=== PATIENT | male | born 1940 | race Caucasian/White ===

== ENCOUNTER 2017-07-25 08:49 | Emergency (ER) | payer MEDICARE, OTHER, SELFPAY | END 2017-07-25 11:04 | disposition home or self-care (01) | PROVIDERS: Emergency Provider Emergency Medicine; PCP Internal Medicine; Visit Provider Emergency Medicine | DX: R10.31 Right lower quadrant pain (principal) | CPT/HCPCS: 76705; 80053; 85025; 99058; 99284 ==

== ENCOUNTER → 2017-09-11 10:03 | Outpatient (CLI) | payer MEDICARE, OTHER, SELFPAY ==
[2017-08-15 00:01] VITALS: BMI 27.7
--- NOTE | 2017-09-11 | DI.CT.S_ITS ---
PROCEDURE: CT ABDOMEN PELVIS W CON INDICATIONS: RIGHT LOWER QUADRANT PAIN TECHNIQUE: After the administration of oral and intravenous contrast, 5 mm thick sections acquired from the diaphragms to the symphysis. 5 mm thick coronal and sagittal reformats were performed. For radiation dose reduction, the following was used: automated exposure control, adjustment of mA and/or kV according to patient size. COMPARISON: [facility], CT, CHEST ABDOMEN WITH CONTRAST, 01/15/2009, 9:30. [facility], CT, ABDOMEN/PELVIS WITH CONTRAST, 08/02/2017, 12:09. FINDINGS: Image quality: Excellent. ABDOMEN: Lung bases: Lung bases are clear. Heart size is normal. A small to moderate-sized hiatal hernia is again seen behind the heart. Solid organs: Liver is normal in size and enhancement. Gallbladder appears normal. Biliary system is non-dilated. Pancreas enhances normally, and a water density ovoid sharply demarcated structure at the anterior superior border of the pancreatic tail now measures up to 2.0 cm AP and 2.5 cm transverse, versus 1.5 x 1.7 cm measured in the same area in [address] scan. Spleen is normal in size and enhancement. No adrenal nodules. Kidneys are normal in size and enhancement, without hydronephrosis. Exophytic anterior left simple appearing water density 4.5 x 5.7 cm renal cortical cyst. Peritoneum and bowel: Stomach, small bowel, and colon loops are normal in caliber and wall thickness. No free fluid or air. Moderate colonic constipation, right greater than left. Nodes and vessels: No retroperitoneal or mesenteric adenopathy. Aorta and inferior vena cava are normal in caliber. Miscellaneous: No ventral hernias. PELVIS: Genitourinary: Bladder wall thickness is normal. Miscellaneous: No inguinal hernias or adenopathy. Moderate colonic constipation, right greater than left. No acute diverticulitis and there is only mild diverticulosis involving the sigmoid colon. Bones: No suspicious bony lesions. No vertebral body compression fractures. IMPRESSION: 1. Bilateral colonic obstipation, right greater than left, and this represents a significant potential etiology for the reported right lower quadrant pain. A normal or abnormal appendix could not be located within the pelvis, but no secondary CT evidence of acute appendicitis is seen. 2. Anterior superior pancreatic tail cyst is present, measuring currently 2.0 x 2.5 cm in maximal AP and transverse dimensions and in 2008 this had measured 1.5 x 1.7 cm. 3. Mild diverticulosis involving the sigmoid colon, no evidence of diverticulitis. Dictated by: Matteo Wells M.D. on 09/11/2017 at 11:40 Approved by: Matteo Wells M.D. on 09/11/2017 at 11:49
== END ==
PROVIDERS: PCP Internal Medicine; Visit Provider Internal Medicine
DX: R10.31 Right lower quadrant pain (principal); K59.00 Constipation, unspecified; K86.2 Cyst of pancreas; K57.30 Diverticulosis of large intestine without perforation or abscess without bleeding
CPT/HCPCS: 74177; Q9967

== ENCOUNTER 2017-09-19 11:44 | Observation (INO) | payer MEDICARE, OTHER, SELFPAY ==
[2017-08-15 00:01] VITALS: BMI 27.7
--- NOTE | 2017-09-19 | DI.CT.S_ITS ---
PROCEDURE: CT HEAD/BRAIN WO CON INDICATIONS: FALL, POSSIBLE LOC TECHNIQUE: Noncontrast 4.5 mm thick angled axial sections acquired from the foramen magnum to the vertex, with coronal and sagittal reformats. For radiation dose reduction, the following was used: automated exposure control, adjustment of mA and/or kV according to patient size. COMPARISON: [facility], CT, HEAD WITHOUT CONTRAST, 05/15/2014, 15:09. [facility], CT, HEAD WITHOUT CONTRAST, 06/18/2017, 15:38. [facility], CT, CT HEAD/BRAIN WO CON, 08/14/2017, 19:07. FINDINGS: Image quality: Excellent. CSF spaces: Basal cisterns are patent. No extra-axial fluid collections. The ventricles are symmetric in size and shape. Brain: No intracranial bleeds or masses. There is cerebral volume loss for age, with resultant ventricular and sulcal prominence. There are periventricular and deep white matter chronic small vessel ischemic changes. There is intracranial internal carotid artery and vertebral artery atherosclerosis. Skull and face: Calvarium and visualized facial bones appear intact, without suspicious lesions. Sinuses: Visualized sinuses and mastoids are clear. IMPRESSION: No acute intracranial disease process. Dictated by: Olivia Thomas MD, PhD on 09/19/2017 at 12:40 Approved by: Olivia Thomas MD, PhD on 09/19/2017 at 12:41
--- NOTE | 2017-09-19 11:58 | ED.FALL ---
HPI - Fall General Chief Complaint: Fall Stated Complaint: GLF Time Seen by Provider: 09/19/17 11:51 Source: EMS Mode of arrival: EMS Limitations: no limitations History of Present Illness HPI Narrative: Patient is a go 77-year-old male who unfortunately tripped over a curb of falling forward. He did need some help up he has a contusion under his right eye and a laceration on his face. He is not on blood thinner she did not lose consciousness. He has no neck pain. His he is complaining of right shoulder pain and some right chest pain as well. MD complaint: fall Related Data Home Medications Medication Instructions Recorded Confirmed ASPIRIN (#ASPIRIN) 81 mg PO QDAY #0 01/01/11 08/15/17 ascorbic acid (vitamin C) 500 mg PO QDAY #0 06/18/17 08/15/17 Previous Rx's Medication Instructions Recorded acetaminophen 0 mg PO Q4HP PRN #30 tab 06/21/17 tamsulosin 0.4 mg PO DAILY #30 cap 08/17/17 tramadol 50 mg PO Q6H PRN #20 tab 08/17/17 bacitracin zinc 1 applictn TOP TID #15 gram 08/18/17 valsartan 80 mg PO DAILY #30 tab 08/18/17 Allergies Allergy/AdvReac Type Severity Reaction Status Date / Time Sulfa (Sulfonamide Allergy Mild Verified 08/16/17 11:56 Antibiotics) [SULFA (SULFONAMIDE ANTIBIOTICS)] Review of Systems Review of Systems All systems reviewed & are unremarkable except as noted in HPI and below Constitutional Denies chills, Denies fever(s), Denies lethargy and Denies weakness Eyes Denies loss of vision ENT Ears, Nose, Mouth, and Throat: Reports system reviewed and no additional complaints, except as docu, Reports as per HPI, Denies vertigo and Denies dizziness Cardiovascular Denies dyspnea and Denies dyspnea on exertion Respiratory Reports as per HPI, Denies cough, Denies dyspnea, Denies dyspnea on exertion and Denies wheezing Gastrointestinal Gastrointestinal: Denies abdominal pain, Denies change in bowel habits, Denies diarrhea, Denies nausea and Denies vomiting Integumentary/Breasts Denies pruritus, Denies erythema, Denies rash and Denies wounds Neurologic Denies vertigo, Denies dizziness, Denies loss of vision, Denies weakness and Denies other (LOC) Allergic/Immunologic Denies wheezing Exam Initial Vital Signs Initial Vital Signs: Vital Signs Temperature 97.2 F L 09/19/17 11:59 Pulse Rate 88 09/19/17 11:59 Respiratory Rate 13 09/19/17 11:59 Blood Pressure 142/84 H 09/19/17 11:59 Pulse Oximetry 97 09/19/17 11:59 HENMT Head: normal to inspection and normocephalic Ears: hearing grossly normal bilaterally Nose: external nose normal Eyes Alignment and Position: alignment normal Periorbital: periorbital findings abnormal right other (All laceration vertical 2 cm) Cornea: corneas normal Pupils: PERRL EOM: EOM intact bilaterally Resp Effort & Inspection: normal respiratory effort, able to speak in complete sentences, no respiratory distress and no use of accessory muscles Auscultation: clear to auscultation bilaterally, no rales, no rhonchi and no wheezes Cardio Rate: regular rate Rhythm: regular rhythm Heart Sounds: no click, no gallops, no murmurs and no rubs Pulses: normal peripheral pulses Skin Trauma: laceration (right periorbital area) Neuro General: alert, awake and oriented x3 Cognition: normal cognition Speech: speech normal Gait: normal gait Motor: muscle tone normal throughout Extrem General: normal to inspection and full ROM Right upper extremity: normal to inspection, full ROM and shoulder/upper arm (tender) Left upper extremity: normal to inspection and full ROM Right lower extremity: normal to inspection, full ROM and hip/thigh (tender) Left lower extremity: normal to inspection and full ROM PFSH Medical History Hypertension (Acute) Obstructive sleep apnea (Acute) Chronic kidney disease, stage II (mild) (Acute) Mild cognitive impairment (Acute) Osteoarthritis (Acute) Pressure ulcer of unspecified buttock, stage 3 (Acute) Allergic rhinitis (Acute) Urinary retention (Acute) Social History household members: none Smoking Status: Never smoker alcohol intake: current Procedures Laceration Repair Laceration 1: Site: face Side (If applicable): right Size (cm): 2 Description: linear Depth: simple, single layer Local Anesthetic: lidocaine 1% Amount of anesthesia used (mL): 3 Pre-repair: wound explored and irrigated extensively Skin layer closed with: nylon Size (cm): 5-0 Number of sutures: 3 Technique: simple, interrupted Course Orders Ordered: ED Orders 09/19/17 11:59 XR hip w pel if done RT 2V Stat XR shoulder RT min 2V Stat 09/19/17 13:03 XR chest 1V Stat 09/19/17 15:08 Consult to Physical Therapy Evaluate & Treat Vital Signs - 8 hr 09/19/17 11:59 09/19/17 13:35 09/19/17 14:33 Temperature 97.2 F L Pulse Rate 88 80 84 Respiratory Rate 13 14 16 Blood Pressure 142/84 H Blood Pressure [Right Arm] 148/91 H 151/88 H Pulse Oximetry 97 95 96 MDM - Fall Imaging Data CT scan - head: My impression: PROCEDURE: CT HEAD/BRAIN WO CON INDICATIONS: FALL, POSSIBLE LOC TECHNIQUE: Noncontrast 4.5 mm thick angled axial sections acquired from the foramen magnum to the vertex, with coronal and sagittal reformats. For radiation dose reduction, the following was used: automated exposure control, adjustment of mA and/or kV according to patient size. COMPARISON: [facility], CT, HEAD WITHOUT CONTRAST, 05/15/2014, 15:09. [facility], CT, HEAD WITHOUT CONTRAST, 06/18/2017, 15:38. [facility], CT, CT HEAD/BRAIN WO CON, 08/14/2017, 19:07. FINDINGS: Image quality: Excellent. CSF spaces: Basal cisterns are patent. No extra-axial fluid collections. The ventricles are symmetric in size and shape. Brain: No intracranial bleeds or masses. There is cerebral volume loss for age, with resultant ventricular and sulcal prominence. There are periventricular and deep white matter chronic small vessel ischemic changes. There is intracranial internal carotid artery and vertebral artery atherosclerosis. Skull and face: Calvarium and visualized facial bones appear intact, without suspicious lesions. Sinuses: Visualized sinuses and mastoids are clear. IMPRESSION: No acute intracranial disease process. Dictated by: Olivia Thomas MD, PhD on 09/19/2017 at 12:40 Approved by: Olivia Thomas MD, PhD on 09/19/2017 at 12:41 right hip x ray: Radiologist's impression: PROCEDURE: XR HIP W PEL IF DONE RT 4V INDICATIONS: fall pain TECHNIQUE: AP pelvis and lateral view of the right hip acquired. COMPARISON: [facility], CR, PELVIS 1 OR 2 VIEWS, 06/20/2013, 15:06. [facility], CT, CT ABDOMEN PELVIS W CON, 09/11/2017, 11:06. FINDINGS: Bones: Patient is status post bilateral hip arthroplasties, with hardware components in expected positions. The hip joint appears congruent. The visualized bony structures appear intact. Soft tissues: Overlying postoperative changes are noted. No suspicious soft tissue densities. Heterotopic ossification adjacent to the right acetabulum is stable compared to prior CT scan. IMPRESSION: No fracture. No osseous lesion. If there are persistent symptoms or clinical suspicion for pathology, then repeat radiographs or advanced imaging (CT or bone scan) should be considered for further evaluation. Dictated by: Olivia Thomas MD, PhD on 09/19/2017 at 12:38 right shoulder: Radiologist's impression: PROCEDURE: XR HIP W PEL IF DONE RT 4V INDICATIONS: fall pain TECHNIQUE: AP pelvis and lateral view of the right hip acquired. COMPARISON: [facility], , PELVIS 1 OR 2 VIEWS, 06/20/2013, 15:06. [facility], CT, CT ABDOMEN PELVIS W CON, 09/11/2017, 11:06. FINDINGS: Bones: Patient is status post bilateral hip arthroplasties, with hardware components in expected positions. The hip joint appears congruent. The visualized bony structures appear intact. Soft tissues: Overlying postoperative changes are noted. No suspicious soft tissue densities. Heterotopic ossification adjacent to the right acetabulum is stable compared to prior CT scan. IMPRESSION: No fracture. No osseous lesion. If there are persistent symptoms or clinical suspicion for pathology, then repeat radiographs or advanced imaging (CT or bone scan) should be considered for further evaluation. Dictated by: Olivia Thomas MD, PhD on 09/19/2017 at 12:38 Chest x-ray: Radiologist's impression: PROCEDURE: XR CHEST 1V INDICATIONS: swelling pain right side of chest after fall TECHNIQUE: One view of the chest was acquired. COMPARISON: [facility], XR SHOULDER RT MIN 2V, 09/19/2017, 11:50. [facility], CHEST 1 VIEW, 06/18/2017, 15:19. FINDINGS: Surgical changes and devices: None. Lungs and pleura: No pleural effusions or pneumothorax. Elevation the right hemidiaphragm is stable. Linear opacities in the right lung base which could represent atelectasis or parenchymal scarring stable. Mediastinum: Mediastinal contours appear normal. Heart size is normal. Retrocardiac hiatal hernia stable. Bones and chest wall: No suspicious bony lesions. Overlying soft tissues appear unremarkable. IMPRESSION: No acute cardiopulmonary disease process. Dictated by: Olivia Thomas MD, PhD on 09/19/2017 at 14:03 [facility] Narrative Medical decision making narrative: The patient is ambulatory with a cane for minimal distance in the ED. Neighbors are here to pick him up. Apparently patient was wheeled out to the car and he would not of get from the wheelchair into the car. Of the neighbors would not take him home and less if he was able to get out of the wheelchair on his own accord. He was alone of the neighbors who are normally there they are leaving today and will not be back tomorrow to check on him he has no one else in town or around locally on the nearest is his sister in [place]. He is brought back to the emergency department. He is seen evaluated by physical therapy where it was determined he has maximal assistance he really will not get up out of the wheelchair on his own accord he does not have the strength. And once up a he is extremely unsteady on his feet. I have called and spoken with the sister in a [place]. She states they actually tried to get him into assisted living this week in fact just 2 or 3 days ago. There is a room available they have not yet made a down payment. The patient got very upset and did not want to live there. I have told her that he is unsafe off on his own that he needs more assistance than what his neighbors and home health care can give him. She agrees she understands. We are able to keep him in observation tonight to help keep him safe because there is no other way. She says he is supposed to go to [facility] she has left a message for Brayden the coordinator there. Unfortunately Robi is not in again in till 9:00 a.m. tomorrow. Hopefully arrangements can be made for tomorrow. Dr. Lenz has kindly and graciously accepted this patient for observation tonight. Discharge Plan Departure Patient Disposition: Admitted as Observation Clinical Impression: Face lacerations Interventions: ED Discharge Assessment Last Done: 09/19/17 14:42 Instructions: Contusion, DI for Laceration Repair Additional Instructions: 1. Have your suture removed in 5-7 days, you may go to walk-in clinic, return to the ER or call your primary care physician. 2. No soaking in water including dishes, bathtubs, Lakes, swimming pools etc 3. Signs of infection include, but not limited to, increased redness, increased swelling, increased pain, fever and purulent drainage, if the symptoms should arise, you may need an antibiotic and you should have a reevaluation either by your primary care provider or by the emergency department. 4. Put ice pack on the right eye 20 minutes at time Referrals: Rene Diop MD [Primary Care Provider] - Admit Date/Time: 09/19/17 17:42 Admit Provider: Ap Lenz
[2017-09-19 11:59] VITALS: BP 142/84; PULSE 88; RESP 13; TEMP 36.2; O2SAT 97
--- NOTE | 2017-09-19 11:59 | DI.RAD.S_ITS ---
PROCEDURE: XR SHOULDER RT MIN 2V INDICATIONS: fall pain deformity TECHNIQUE: 3 views of the shoulder were acquired. COMPARISON: [facility], CT, CT ANGIO CHEST PE PROTOCOL, 08/15/2017, 10:42. [facility], CR, XR SHOULDER LT MIN 2V, 08/14/2017, 18:59. FINDINGS: Bones: No fractures or dislocations. No suspicious bony lesions. Visualized ribs appear intact. Soft tissues: No suspicious soft tissue calcifications. IMPRESSION: No fracture. No acute osseous lesion. If there are persistent symptoms or clinical suspicion for pathology, then repeat radiographs or advanced imaging (CT, MRI or bone scan) should be considered for further evaluation. Dictated by: Olivia Thomas MD, PhD on 09/19/2017 at 12:33 Approved by: Olivia Thomas MD, PhD on 09/19/2017 at 12:35
--- NOTE | 2017-09-19 13:03 | DI.RAD.S_ITS ---
PROCEDURE: XR CHEST 1V INDICATIONS: swelling pain right side of chest after fall TECHNIQUE: One view of the chest was acquired. COMPARISON: [facility], CR, XR SHOULDER RT MIN 2V, 09/19/2017, 11:50. [facility], CR, CHEST 1 VIEW, 06/18/2017, 15:19. FINDINGS: Surgical changes and devices: None. Lungs and pleura: No pleural effusions or pneumothorax. Elevation the right hemidiaphragm is stable. Linear opacities in the right lung base which could represent atelectasis or parenchymal scarring stable. Mediastinum: Mediastinal contours appear normal. Heart size is normal. Retrocardiac hiatal hernia stable. Bones and chest wall: No suspicious bony lesions. Overlying soft tissues appear unremarkable. IMPRESSION: No acute cardiopulmonary disease process. Dictated by: Olivia Thomas MD, PhD on 09/19/2017 at 14:03 Approved by: Olivia Thomas MD, PhD on 09/19/2017 at 14:05
--- NOTE | 2017-09-19 13:24 | PC.NURSE ---
Pt has a puncture wound on right eyebrow.
[2017-09-19 13:35] VITALS: BP 148/91; PULSE 80; RESP 14; O2SAT 95
[2017-09-19 14:33] VITALS: BP 151/88; PULSE 84; RESP 16; O2SAT 96
--- NOTE | 2017-09-19 15:13 | PC.NURSE ---
pt ambulated in room well, pt leaving with neighbors and pt states it hurts to much to move, pt told we may have to admit him, he said no. spoke with dr. gifford and an order for PT. PT aware.
--- NOTE | 2017-09-19 16:19 | PT.IIE ---
Medical History (Last Updated 08/15/17 @ 16:24 by Rene Diop MD) Hypertension (Acute) Obstructive sleep apnea (Acute) Chronic kidney disease, stage II (mild) (Acute) Mild cognitive impairment (Acute) Osteoarthritis (Acute) Pressure ulcer of unspecified buttock, stage 3 (Acute) Allergic rhinitis (Acute) Urinary retention (Acute) Physical Therapy Inpatient Evaluation/Re-Eval M1 PT/OT-IP Prior Functional Status Start: 09/19/17 15:53 Freq: Status: Active Protocol: Document 09/19/17 15:53 AB (Rec: 09/19/17 16:19 AB [id number]) Medical Review Prior Functional Status Medical History Reviewed Yes Mobility and Gait Nurse stated that pt's friend told them that pt lives alone and has visiting nurse weekdays and only 2 neighbors assist him at home. Pt ambulates using a SPC. Social History Household Members none Living Arrangements Apartment/Condo Number of Floors (Floors) One Floor Home Environment Walk in Shower Tub/Shower Ramp Home Equipment Front Wheel Walker Straight Cane Employment Status Retired M2 PT-IP Current Condition Start: 09/19/17 15:53 Freq: Status: Active Protocol: Document 09/19/17 15:53 AB (Rec: 09/19/17 16:19 AB [id number]) Physical Therapy Current Condition Current Condition Evaluation Date 09/19/17 Treatment Diagnosis GLF; difficulty in mobility Onset Date 09/19/17 Precautions Other Precautions Falls M3 PT-IP Subjective Start: 09/19/17 15:53 Freq: Status: Active Protocol: Document 09/19/17 15:53 AB (Rec: 09/19/17 16:19 AB [id number]) Subjective Physical Therapy Visit Type Type Initial Evaluation Visit Start Time 15:30 Visit Stop Time 16:00 Total Visit Minutes 30 Number of TESTER WASTE DISPOSAL LEAKAGE Visits 0 Physical Therapy Visit Comments Patient Comments c/o R sided rib pain Therapy Pain Assessment Pain When Pain Assessed At Rest Pain Present Pain Present Pain Reported Location Right Ribs Scale Used pain scale not stated M4 PT-IP Mobility and Gait Start: 09/19/17 15:53 Freq: Status: Active Protocol: Document 09/19/17 15:53 AB (Rec: 09/19/17 16:19 AB [id number]) Bed Transfer Assessment Comments Bed Transfer Comments Pt completed sit to stand from w/c max A and max cues with ~ 4 attempts prior to being able to complete. Gait Assessment Gait Gait Assistance Required: Moderate Assistance Distance (Feet) (feet) 25 Able to Maintain Weight Bearing Status Yes During Gait Assistive Devices Assistive Device Gait Belt Straight Cane Orthotic/Prosthetic Devices or Brace: No Gait Deviations General Gait Pattern Antalgic Decreased Stride Length Decreased Feet Clearance Narrow Based Gait Factors Limiting Gait Function Factors Limiting Gait Function Decreased Activity Tolerance Decreased Strength Pain Poor Balance Poor Safety Awareness Comments Gait Comments pt presents with unsteady gait requiring mod A and increase unsteadiness with turning. informed pt that pt is safer with using a FWW at this time instead of a SPC. PT-Balance Assessment Sitting Balance and Reactions Static Sitting Balance Ability Good Dynamic Sitting Balance Ability Fair Standing Balance and Reactions Static Standing Balance Ability Fair Dynamic Standing Balance Ability Poor Device Used SPC M5 PT-IP Objective Assessments Start: 09/19/17 15:53 Freq: Status: Active Protocol: Document 09/19/17 15:53 AB (Rec: 09/19/17 16:19 AB [id number]) Orientation Orientation/Cognition Level of Alertness Alert Orientation Name Place Situation Safety Awareness Decreased Safety Awareness Memory Description Short Term Impaired Fpc Impaired Strength Lower Extremity Strength Assessment Bilaterally Impaired Hip 4-/5 Knee 4-/5 Ankle 4-/5 M6 PT-IP Treatment Start: 09/19/17 15:53 Freq: Status: Active Protocol: Document 09/19/17 15:53 AB (Rec: 09/19/17 16:19 AB [id number]) Physical Therapy Treatment Education Education Provided Safety M7 PT-IP Assessment and Plan Start: 09/19/17 15:53 Freq: Status: Active Protocol: Document 09/19/17 15:53 AB (Rec: 09/19/17 16:19 AB [id number]) PT Summary Assessment and Plan Potential Rehabilitation Potential Fair Status of Condition at Evaluation Stable Summary Impairments Pain Strength Balance Cognition Bed Mobility Transfers Gait Activity Tolerance Assessment Summary PT eval order received to assess safe d/c home after GLF . pt at this time requires max A and max cues for sit to stand and presents with unsteady gait with use of SPC requiring mod A and max cues. Pt is not safe to go home at this time. Pt will benefit from further d/c planning as pt is not safe to go home alone. Goals Bed Mobility Goal Standby Assistance Transfer Goal Standby Assistance Gait Goal Standby Assistance Gait Distance 75 Days to Meet Goals 2 Frequency of Treatment Frequency Of Treatment Twice a Day Treatment Plan Physical Therapy Treatment Plan Bed Mobility Training Transfer Training Gait Training Therapeutic Exercise Balance Retraining Post Op Education Discharge Planning Hot or Cold Pack Neuromuscular Re-ed Coordination Retraining Manual Therapy Recommendations To Nursing Amount of Assist Needed 1 Person Assist Discharge Recommendations PT Discharge Recommendations Home with 27/10 Assist Home Health SNF Rehab Provider Visit Care Team Role Provider Type Rene Diop MD Family Provider Physician Primary Care Provider Specialty: Internal Medicine Cathie Rao DO Emergency Provider Physician Specialty: Emergency Medicine
[2017-09-19 18:21] VITALS: BP 158/89; PULSE 89; RESP 20; TEMP 37.4; O2SAT 97
[2017-09-19] MEDS: TRAMADOL 50 MG TABLET PO ×2 (18:30→22:04)
--- NOTE | 2017-09-19 18:32 | PC.NURSE ---
1819- Pt arrived via wheelchair to room 103. Pt is a frail looking man responding appropriately to questions but is slow to reply. Pt right eye is swollen and has a large hematoma, right knee has abrasions and bruising starting to show, a scabbed over peg tube site to upper abdomen. Pt states he has pain to his right chest with inspiration. Pt is a two person assist to mobilize. Pt was dressed in soiled underwear. Buttocks has a almost healed wound and impression to the tissue of either a bed henry or toilet seat. Photos taken of all wounds. Pt lungs are clear to auscultation. When mobilizing pt noted to have a difficult time moving his feet and maintaining balance. Pt is a high risk for fall. Bed alarm is active. Pt is unable to give a current medication list, his pharmacy is [facility] in [place]. The pharmacy is closed at this time so no current med list could be obtained. Pt sister is in [place] and she reportedly has POA though this is not verified at this time. Dr. Lenz notified of patient arrival and pain orders rec.
[2017-09-19 18:44] VITALS: BMI 25.9
[2017-09-19 19:52] VITALS: BP 132/67; PULSE 85; RESP 19; TEMP 36.8
--- NOTE | 2017-09-19 20:14 | PC.NURSE ---
1999- Placed a call to Dr. Lenz to let him know that the admit in 103 did not have any admit orders. Dr. Lenz gave a verbal order to admit as observation no other orders rec. Will monitor
--- NOTE | 2017-09-19 20:57 | PC.NURSE ---
2054- Pt is restless and anxious. Pt medicated per order for pain. Pt repositioned and assisted to the chair to see if this would be more comfortable for him. Will monitor.
[2017-09-19 23:17] VITALS: BP 139/80; PULSE 63; RESP 17; TEMP 36.7; O2SAT 96
--- NOTE | 2017-09-19 23:34 | PC.NURSE ---
Pt states he can move himself, but is unable to turn by himself. Pt states he can stand, but is unable to stand even with cueing without 2 person assist. c/o pain under right arm, but had Tramadol 1.5 hours ago. Assessment- At this point pt too weak and impaired to do any care for self, unknown if he can feed himself. Will need much evaluation by PT.
--- NOTE | 2017-09-20 06:49 | P.HP_ITS ---
History of Present Illness Date Patient Seen: 09/20/17 Time Patient Seen: 06:45 Chief complaint: GLF Narrative: Patient tripped over a curb and fell and struck his head cut his high. This was a witnessed fall. No loss of consciousness noted. He does live alone he was brought to the emergency room by friends patient was unable to ambulate after he was attended to by the ER. Patient History Medical History Hypertension (Acute) Obstructive sleep apnea (Acute) Chronic kidney disease, stage II (mild) (Acute) Mild cognitive impairment (Acute) Osteoarthritis (Acute) Pressure ulcer of unspecified buttock, stage 3 (Acute) Allergic rhinitis (Acute) Urinary retention (Acute) Family & Social History Social History: household members none Prior Living Arrangements Apartment/Condo Safety & Behavioral: Feels Safe in Current Yes Environment Been Physically Hurt or No Threatened By a Person Suicidal Ideation Description None Suicide Plan Description No Plan Tobacco & Substance use: Smoking Status Never smoker alcohol intake current alcohol intake frequency holiday/special occasion Substance Use Type does not use Meds Home Medications Medication Instructions Recorded Confirmed Type ASPIRIN (#ASPIRIN) 81 mg PO QDAY #0 01/01/11 08/15/17 History ascorbic acid (vitamin C) 500 mg PO QDAY #0 06/18/17 08/15/17 History acetaminophen 0 mg PO Q4HP PRN #30 tab 06/21/17 08/15/17 Rx tamsulosin 0.4 mg PO DAILY #30 cap 08/17/17 Rx tramadol 50 mg PO Q6H PRN #20 tab 08/17/17 Rx bacitracin zinc 1 applictn TOP TID #15 gram 08/18/17 Rx valsartan 80 mg PO DAILY #30 tab 08/18/17 Rx Allergies Allergy/AdvReac Type Severity Reaction Status Date / Time Sulfa (Sulfonamide Allergy Mild Verified 08/16/17 11:56 Antibiotics) [SULFA (SULFONAMIDE ANTIBIOTICS)] Review of Systems Review of Systems All systems reviewed & are unremarkable except as noted in HPI and below Exam Vital Signs (past 8 hours): Vital Signs - 8 hr 3 09/19/17 23:17 Temperature 98.1 F Pulse Rate 63 Respiratory Rate 17 Blood Pressure 139/80 H Pulse Oximetry 96 Pulse Oximetry 96 Oxygen Delivery Method Room Air Narrative Exam Narrative: There is bruising ecchymoses around the right eye there is laceration just lateral to the orbit. Otherwise head has no other signs of trauma. Neck is supple Heart regular rhythm Lungs clear Abdomen soft nontender bowel sounds present no masses Lower extremities no edema she he does have some abrasions on the right knee area Skin warm and dry Neuro exam awake alert oriented he is conversant speech is normal Objective Labs Labs: Laboratory Results - last 24 hr 09/19/17 Unknown Nasal Screen MRSA (PCR) Negative for mrsa Assessment & Plan Plan: Assessment/Plan Narrative: One. Ground level fall after tripping now unable to ambulate due to pain and weakness. His laceration was sewed up by the ER he has bruising around the right eye. The patient will placed on observation physical therapy were work will work with him and see if we can get him back home safely 2. History of chronic kidney disease plan to check a chemistry profile 3. History of falls patient may need a more supervised environment at home 4. Hypertension plan to continue valsartan 5. Code status patient desires to be full code Quality VTE Deep Vein Thrombosis/Pulmonary Embolism Present on Admission: No
[2017-09-20 07:38] VITALS: BP 152/84; PULSE 68; RESP 18; TEMP 36.6; O2SAT 95
[2017-09-20 08:26] LABS: Appearance Urine UA CLOUDY; Bilirubin Urine UA NEGATIVE (NEGATIVE); Color Urine UA YELLOW; Glucose Urine UA NEGATIVE (Normal); Ketones Urine UA NEGATIVE (NEGATIVE); Leukocyte Esterase Urine UA 3+ (NEGATIVE); Nitrite Urine UA Negative (Negative); Occult Blood Urine UA 1+ (Negative); Protein Urine UA 2+ (Negative); Specific Gravity Urine UA 1.025 (1.000-1.035); Urobilinogen Urine UA 0.2 E.U./dL (0.2)
[2017-09-20 08:27] LABS: Bacteria Urine Many (>30); Culture Indicated Urine Specimen Cultured; RBC Urine 5-10/HPF (0-5/HPF); WBC Urine 30-100/HPF (0-5/HPF)
[2017-09-20 08:28] LABS: Hematocrit 39.4 % (41-53); Hemoglobin 13.1 g/dL (13.5-17.5); Mean Corpuscular HGB Conc 33.3 % (30-36); Mean Corpuscular Volume 93.1 fL (80-100); Platelet Count 226 X10^3/uL (150-400); Red Blood Cell Count 4.24 X10^6/uL (4.5-5.9); Red Cell Distribution Width 15.5 % (11.6-14.8); White Blood Cell Count 7.6 X10^3/uL (4.5-11.0)
[2017-09-20 08:36] LABS: Alanine Aminotransferase 31 IU/L (21-72); Albumin 3.7 g/dL (3.5-5.0); Albumin Globulin Ratio 1.2 (1.0-2.8); Alkaline Phosphatase 73 U/L (38-126); Aspartate Aminotransferase 35 IU/L (17-59); Bilirubin Total 0.6 mg/dL (0.2-1.3); Blood Urea Nitrogen 18 mg/dL (9-20); Carbon Dioxide 30 mmol/L (22-32); Chloride 101 mmol/L (98-107); Estimated Glomerular Filt Rate > 60.0 mL/min (>60); Globulin 3.2 g/dL (1.7-4.1); Glucose 100 mg/dL (80-110); HEMOLYSIS < 15 (0-50); Potassium 3.8 mmol/L (3.4-5.1); Sodium 139 mmol/L (137-145); Total Protein 6.9 g/dL (6.3-8.2)
[2017-09-20] MEDS: TAMSULOSIN 0.4 MG CAPSULE PO (09:12)
[2017-09-20] MEDS: VALSARTAN 80 MG TABLET PO (09:12)
--- NOTE | 2017-09-20 10:15 | CM.DANOTE ---
Addendum entered by Joi Chavez R.N. 09/21/17 08:40: Original Note: Addendum entered by ENEDINA Lomas 09/20/17 14:23: ADD: HILDA met with RN, PT, and Kita BADILLO from [facility] who assessed pt and reviewed some of his clinicals and Kita gathered additional information from the group about pt's assist level and ambulation and medical needs. Per RN, pt may have UTI and also took stool sample so not medically stable for d/c yet today. Per Kita from [facility], she will return to her office to complete assessment of the pt towards likely acceptance for Respite Stay and will review the information with her administrators. HILDA updated Kita that pt's DPOA/sister Masoud plans to fly here in a couple days to help with coordination of services and possibly moving he pt to assisted living. HILDA made sure Kita has both DPOA's contact information. Plan: HILDA to follow for final review from [facility] towards accepting the pt for Respite Stay and close coordination with pt and sister/DPOA. ENEDNIA Lomas Original Note: Discharge Planning/Care Management CM Discharge Assessment Start: 09/20/17 10:12 Freq: Status: Active Protocol: Document 09/20/17 10:12 (Rec: 09/20/17 10:15 [id number]) Discharge Planning Assessment Assigned Graphics Coordinator ENEDINA History Provided By Patient Family Member Medical Record Expected Length of Stay 2 Has Patient been admitted in last 30 No days? Is this patient on Medicare? Yes Is the admit diagnosis the same? No Comment Possible UTI Prior Living Arrangements Apartment/Condo Household Members none Type of transporation used prior to Relies on Others admit Independent with ADL's Yes Is patient alert and oriented? Yes Needs Assistance With Home Chores / Shopping Caregiver for Another No DME Already Rented / Owned FWW / Walker Cane Comment and walking sticks. info gathered in part from OT ammon. Patient Discharge Plan Description [facility] Facility Referrals Initiated Other Comment likely snf need based on observation of pt getting into bedside chair with heavy assist RN and BULLDOZER/LOADER/COMPACTOR/SCRAPER staff Comment Patient has multiple admits for GLF and not safe for d/c home without / Discharge Plan Assisted Living Facility Additional Comment in process...will discuss snf with pt tomorrow. If Pt is MCR-Have 3 Inpt. midnights been No: but pt is admitted under confirmed with UR? inpt status, confirmed by UR RN and MD Review Status In Process Next Review Type Discharge Review Patient is a 77 year old male who was admitted OBS STATUS on 09/19/17 for GLF. Pt has MCR and [employer] for insurance and his PCP is Dr. Diop. EMR was reviewed. Per MD, pt has mild cognitive impairment at baseline. Per PT, recommending pt either d/c home with 24/7 care and HH vs SNF. SW met bedside with pt and explained role and pt seemed to be alert and oriented and confirmed that he still lives at home alone but has private pay caregiver come 1-2 times a week to help with chores. Pt states that he is Independent with ADL's at baseline and typically uses a walking stick for ambulation. Pt has a recent hx of [facility] rehab in June 2017 and then discharged home. Pt's DPOA's are his sister Masoud ([phone]) and cousin Nery ([phone]). Pt is agreeable with SW and RN updated his sister Masoud. SW discussed current PT recommendation and pt states that he has supportive neighbors and friends that could check on him daily but not stay the night for 24/7 assist. SW discussed his current OBS Status and no current MCR coverage for SNF and pt states that he does not think he would be willing to pay privately for SNF stay. SW and RN called pt's sister/DPOA Masoud and explained role and discussed current recommendation of 24/7 vs SNF at d/c. Masoud states that they had already been in the process of setting up Respite Stay at [facility] with the hopes that the pt would then be agreeable to moving into [facility] time study technologist. Masoud states pt is quite frugal with his money but has financial means and that [facility] will be bedside today at 1300 to do bedside assessment towards admitting the pt for Respite stay. Masoud had questions about DPOA ability to get the pt into Assisted Living if pt was not agreeable to moving and HILDA explained the need for pt to be deemed incompetent in order for them to make decisions for the pt against his will. Masoud was thankful for the information and will continue to encourage the pt into moving into assisted living since home alone is not a safe option. SW discussed possible need for APS in the future if pt continues to make unsafe choices. HILDA called [facility] and confirmed that they will do bedside assessment today at 1300. Plan: SW to follow closely after [facility] bedside assessment today at 1300 to determine if they can accept the pt at d/c for Respite Stay with the hope that pt will then be agreeable to move into their Assisted Living facility. ENEDINA Lomas
--- NOTE | 2017-09-20 10:57 | PT.IPTN ---
Physical Therapy Treatment Note M2 PT-IP Current Condition Start: 09/19/17 15:53 Freq: Status: Active Protocol: Document 09/20/17 10:12 RCC (Rec: 09/20/17 10:56 [facility] [id number]) Physical Therapy Current Condition Current Condition Evaluation Date 09/19/17 Treatment Diagnosis GLF; difficulty in mobility Onset Date 09/19/17 Precautions Other Precautions Falls M3 PT-IP Subjective Start: 09/19/17 15:53 Freq: Status: Active Protocol: Document 09/20/17 10:12 RCC (Rec: 09/20/17 10:56 [facility] [id number]) Subjective Physical Therapy Visit Type Type Treatment Note Visit Start Time 09:45 Visit Stop Time 10:12 Total Visit Minutes 27 Number of HEART DOCTOR Visits 0 Physical Therapy Visit Comments Patient Comments Pt notes that his bowel movements have been clear in color, liquid. He also c/o R shoulder and axillary pain. Therapy Pain Assessment Pain When Pain Assessed During Mobility Pain Present Pain Present Pain Reported M4 PT-IP Mobility and Gait Start: 09/19/17 15:53 Freq: Status: Active Protocol: Document 09/20/17 10:12 RCC (Rec: 09/20/17 10:56 [facility] [id number]) PT-Bed Mobility Assessment Sit to Supine Sit to Supine Maximum Assistance 1 Person Assistance Scooting Scooting Up and Down in Bed Moderate Assistance PT-Transfer Assessment Sit to and From Stand Sit to and from Stand Moderate Assistance 1 Person Assistance Equipment Transfer Assistive Device Gait Belt Front Wheeled Walker Transfers Transfer Destination Bed Bedside Commode Transfer Technique Stand Step Pivot Transfer Ability Level of Assist Moderate Assistance 1 Person Assistance Comments Mobility Comments slow-paced, shuffling steps. Requires manual assistance on the FWW for turning, VC for posture. Gait Assessment Gait Gait Assistance Required: Moderate Assistance Distance (Feet) (feet) 20 Assistive Devices Assistive Device Gait Belt Front Wheeled Walker Gait Deviations General Gait Pattern Decreased Stride Length Decreased Feet Clearance Festinating Flexed Trunk Narrow Based Gait Factors Limiting Gait Function Factors Limiting Gait Function Decreased Activity Tolerance Decreased Strength Pain Poor Balance Poor Safety Awareness Comments Gait Comments Increased c/o R shoulder pain with ambulation using FWW. PT-Balance Assessment Sitting Balance and Reactions Static Sitting Balance Ability Good Dynamic Sitting Balance Ability Fair Standing Balance and Reactions Static Standing Balance Ability Poor Dynamic Standing Balance Ability Poor Device Used FWW M5 PT-IP Objective Assessments Start: 09/19/17 15:53 Freq: Status: Active Protocol: Document 09/19/17 15:53 AB (Rec: 09/19/17 16:19 AB [id number]) Orientation Orientation/Cognition Level of Alertness Alert Orientation Name Place Situation Safety Awareness Decreased Safety Awareness Memory Description Short Term Impaired Corporate Planning Manager Impaired Strength Lower Extremity Strength Assessment Bilaterally Impaired Hip 4-/5 Knee 4-/5 Ankle 4-/5 M6 PT-IP Treatment Start: 09/19/17 15:53 Freq: Status: Active Protocol: Document 09/19/17 15:53 AB (Rec: 09/19/17 16:19 AB [id number]) Physical Therapy Treatment Education Education Provided Safety M7 PT-IP Assessment and Plan Start: 09/19/17 15:53 Freq: Status: Active Protocol: Document 09/20/17 10:12 RCC (Rec: 09/20/17 10:56 RCC [id number]) PT Summary Assessment and Plan Summary Assessment Summary Pt had loss of balance twice while standing to urinate, required Mod A to recovery and prevent posterior fall. Pt is not safe to ambulate or mobilize without assistance, and is not safe to d/c back to home without 24/7 care. Pt reported he fell asleep on the toilet at home and hit his leg (has large bruising R posterior leg). Pt would greatly benefit from SNF rehabilitation upon d/c, and likely increased CG assist to 24/7 vs alternate options upon d/c from SNF. Goals Bed Mobility Goal Standby Assistance Transfer Goal Standby Assistance Gait Goal Standby Assistance Gait Distance 75 Days to Meet Goals 2 Frequency of Treatment Frequency Of Treatment Twice a Day Treatment Plan Physical Therapy Treatment Plan Bed Mobility Training Transfer Training Gait Training Therapeutic Exercise Balance Retraining Post Op Education Discharge Planning Hot or Cold Pack Neuromuscular Re-ed Coordination Retraining Manual Therapy Other Recommendations and Next Treatment sit<->stand, gait, standing Focus balance. Recommendations To Nursing Amount of Assist Needed 2 Person Assist Discharge Recommendations PT Discharge Recommendations SNF Rehab Other Discharge Recommendations would need 24/7 assist and services if to d/c home.
[2017-09-20] MEDS: ACETAMINOPHEN 325 MG TABLET 650 MG PO ×2 (11:59→16:19)
--- NOTE | 2017-09-20 14:42 | PC.NURSE ---
1130-Pt c/o 2 wks of watery stool. He denies abd pain and is tolerating a general diet at home that consists of meats and vegetables. Pt stood at bedside and voided cloudy yellow urine per urinal. He then stated he needed to have a BM. Assisted to BSC. Pt passed a large amount of flatus and then stated he was finished. The BSC had pale yellow liquid with moderate amount of small chunks of mucous. Pt states this is consistent with how his stool has looked for the past 2 weeks. He requests to speak with MD regarding this finding. Called to MD and reported pt concerns and assessment findings. Also reported urinalysis results. Reported pt requests for tylenol for pain. Orders received. Pt updated.
--- NOTE | 2017-09-20 14:50 | PC.NURSE ---
1130-Pt c/o 2 wks of watery stool. He denies abd pain and is tolerating a general diet at home that consists of meats and vegetables. Pt stood at bedside and voided cloudy yellow urine per urinal. He then stated he needed to have a BM. Assisted to BSC. Pt passed a large amount of flatus and then stated he was finished. The BSC had pale yellow liquid with moderate amount of small chunks of clear/white mucous. Pt states this is consistent with how his stool has looked for the past 2 weeks. He requests to speak with MD regarding this finding. Called to MD and reported pt concerns and assessment findings. Also reported urinalysis results. Reported pt requests for tylenol for pain. Orders received. Pt updated.
--- NOTE | 2017-09-20 14:58 | PT.IPTN ---
Physical Therapy Treatment Note M2 PT-IP Current Condition Start: 09/19/17 15:53 Freq: Status: Active Protocol: Document 09/20/17 14:20 RCC (Rec: 09/20/17 14:58 RCC [id number]) Physical Therapy Current Condition Current Condition Evaluation Date 09/19/17 Treatment Diagnosis GLF; difficulty in mobility Onset Date 09/19/17 Precautions Other Precautions Falls M3 PT-IP Subjective Start: 09/19/17 15:53 Freq: Status: Active Protocol: Document 09/20/17 14:20 RCC (Rec: 09/20/17 14:58 RCC [id number]) Subjective Physical Therapy Visit Type Type Treatment Note Visit Start Time 13:50 Visit Stop Time 14:20 Total Visit Minutes 30 Number of FEATHER EDGER Visits 0 Physical Therapy Visit Comments Patient Comments Pt willing to ambulate. Therapy Pain Assessment Pain When Pain Assessed At Rest Pain Present Pain Present Pain Reported Location Bilateral Shoulder Pain Management Techniques Modification of Treatment M4 PT-IP Mobility and Gait Start: 09/19/17 15:53 Freq: Status: Active Protocol: Document 09/20/17 14:20 RCC (Rec: 09/20/17 14:58 RCC [id number]) PT-Bed Mobility Assessment Supine to Sit Supine to Sit Moderate Assistance 1 Person Assistance Scooting Scooting to Edge of Bed Minimal Assistance PT-Transfer Assessment Sit to and From Stand Sit to and from Stand Minimal Assistance 1 Person Assistance Equipment Transfer Assistive Device Gait Belt Front Wheeled Walker Transfers Transfer Destination Chair Transfer Technique Stand Step Pivot Transfer Ability Level of Assist Contact Guard Assistance 1 Person Assistance Gait Assessment Gait Gait Assistance Required: Minimum Assistance Distance (Feet) (feet) 60 Assistive Devices Assistive Device Gait Belt Front Wheeled Walker Gait Deviations General Gait Pattern Decreased Stride Length Decreased Feet Clearance Festinating Flexed Trunk Narrow Based Gait Factors Limiting Gait Function Factors Limiting Gait Function Decreased Activity Tolerance Decreased Strength Pain Poor Balance Poor Safety Awareness PT-Balance Assessment Sitting Balance and Reactions Static Sitting Balance Ability Good Dynamic Sitting Balance Ability Fair Standing Balance and Reactions Static Standing Balance Ability Poor Dynamic Standing Balance Ability Poor Device Used FWW M5 PT-IP Objective Assessments Start: 09/19/17 15:53 Freq: Status: Active Protocol: Document 09/19/17 15:53 AB (Rec: 09/19/17 16:19 AB [id number]) Orientation Orientation/Cognition Level of Alertness Alert Orientation Name Place Situation Safety Awareness Decreased Safety Awareness Memory Description Short Term Impaired Upkeep Mechanic Impaired Strength Lower Extremity Strength Assessment Bilaterally Impaired Hip 4-/5 Knee 4-/5 Ankle 4-/5 M6 PT-IP Treatment Start: 09/19/17 15:53 Freq: Status: Active Protocol: Document 09/19/17 15:53 AB (Rec: 09/19/17 16:19 AB [id number]) Physical Therapy Treatment Education Education Provided Safety M7 PT-IP Assessment and Plan Start: 09/19/17 15:53 Freq: Status: Active Protocol: Document 09/20/17 14:20 RCC (Rec: 09/20/17 14:58 RCC [id number]) PT Summary Assessment and Plan Summary Assessment Summary Pt with improved standing balance this session, but is still very unsteady with gait and remains a high fall risk due to his decreased step/ stride length, weakness, impaired posture, and decreased foot clearance bilaterally. Pt continues to require manual assistance with transfers and bed mobility and is not safe to return to prior indep. living situation. Goals Bed Mobility Goal Standby Assistance Transfer Goal Standby Assistance Gait Goal Standby Assistance Gait Distance 75 Days to Meet Goals 2 Frequency of Treatment Frequency Of Treatment Twice a Day Treatment Plan Other Recommendations and Next Treatment prog. bed mobility, transfers, Focus gait. Recommendations To Nursing Amount of Assist Needed 1 Person Assist Discharge Recommendations PT Discharge Recommendations SNF Rehab Other Discharge Recommendations would need 24/ assist and services if to d/c home.
[2017-09-20 16:09] VITALS: BP 165/90; PULSE 70; RESP 18; TEMP 36.7; O2SAT 95
--- NOTE | 2017-09-20 16:55 | PC.NURSE ---
Addendum entered by Ruchi Butler R.N. 09/20/17 18:21: Pt reports need to have BM. Clear, mucus-like discharge. No notable flecks of stool. Pt states that his stool has been like this for approximately 2 weeks. Abd soft, non-tender. No nausea. Reports appetite as light. Sample sent to lab. Pt void per urinal 100cc jo-ann, cloudy urine. Original Note: Addendum entered by Ruchi Butler R.N. 09/20/17 18:09: Pt out of bed to void per urinal. 2 person assist out of bed, however after standing, pt request to ambulate in halls. Pt one person assist to ambulate with gaitbelt and fww. Reinforced safety. Original Note: Pt medicated for bilateral UE pain. Discussed getting up to chair for meal. Pt originally agreeable, however when meal arrived pt declined to get out of bed. I just don't feel well. Discussed digestion and risk for aspiration. Pt again declined to get out of bed. Assist to reposition. Set up for meal in bed. Bed alarm on. Call light in reach.
[2017-09-20 21:33] LABS: Campylobacter Not Detected (Not Detect); Clostridium difficile toxin AB Not Detected (Not Detect); Enteroaggregative E.coli Not Detected (Not Detect); Enteropathogenic E.coli Not Detected (Not Detect); Plesiomonsa shigelloides Not Detected (Not Detect); Salmonella Not Detected (Not Detect); Vibrio Not Detected (Not Detect); Vibrio cholerae Not Detected (Not Detect); Yersinia enterocolitica Not Detected (Not Detect)
[2017-09-20 21:34] LABS: Astrovirus Not Detected (Not Detect); Cryptosporidium Not Detected (Not Detect); Cyclospora cayetanensis Not Detected (Not Detect); Entamoeba histolytica Not Detected (Not Detect); Enterotoxigenic E.coli It/st Not Detected (Not Detect); Giardia lamblia Not Detected (Not Detect); Norovirus GI/GII Not Detected (Not Detect); Rotavirus A Not Detected (Not Detect); Shiga-like toxin-prod E.coli Not Detected (Not Detect); Shigella/Enteroinvasive E.coli Not Detected (Not Detect)
[2017-09-20 21:35] LABS: Adenovirus F 40/41 Not Detected (Not Detect)
--- NOTE | 2017-09-21 02:29 | PC.NURSE ---
Pull me up in bed, explained one person can not pull him up in bed that it takes at least 2. Repositioned about every 2-10 minutes until limits set, and explained we would reposition once an hour, he called 2 minutes later and asked to be repositioned again. Explained this is why he will need to rehab in a skilled nursing, as he can't/won't reposition self. He said his neighbors would help him all night. c/o pain and wants it to stop, offered tylenol and he refused. I explained the pain was not going away for a few days or weeks and pain medication would help, he finally agreed to tylenol.
[2017-09-21] MEDS: ACETAMINOPHEN 325 MG TABLET 650 MG PO ×2 (02:37→08:45)
[2017-09-21 03:57] VITALS: BP 163/89; PULSE 64; RESP 18; TEMP 37.1; O2SAT 93
--- NOTE | 2017-09-21 05:04 | PC.NURSE ---
Stood to void, then wanted to go to the BR, BSC offered, adamantly refused, and took off with walker and walked into BR and back, went to bed, then wanted repositioned, then wanted up, then started yelling. Explained to pt it was not safe for him to sit on the side of the bed without someone with him, as he is a very high fall risk, and he started yelling. Lungs much more clear now.
--- NOTE | 2017-09-21 06:39 | PC.NURSE ---
Patient very angry that he can not be alone in room out of bed. I explained how we do not want him to have another fall, and he gets angry and said he won't fall. He wants the police called, I called the co-ordinator. Unable to reason with patient nor can FULL SERVICE SUPERVISOR or other RN.
[2017-09-21] MEDS: TAMSULOSIN 0.4 MG CAPSULE PO (08:45)
[2017-09-21] MEDS: VALSARTAN 80 MG TABLET PO (08:45)
--- NOTE | 2017-09-21 10:00 | PT.IPTN ---
Physical Therapy Treatment Note M2 PT-IP Current Condition Start: 09/19/17 15:53 Freq: Status: Active Protocol: Document 09/20/17 14:20 RCC (Rec: 09/20/17 14:58 RCC [id number]) Physical Therapy Current Condition Current Condition Evaluation Date 09/19/17 Treatment Diagnosis GLF; difficulty in mobility Onset Date 09/19/17 Precautions Other Precautions Falls M3 PT-IP Subjective Start: 09/19/17 15:53 Freq: Status: Active Protocol: Document 09/21/17 10:00 DLM (Rec: 09/21/17 10:11 DLM [id number]) Subjective Physical Therapy Visit Type Type Patient Unavailable Notes Pt sleeping, recently back to bed with nursing, he was up for breakfast. Will try back later.
--- NOTE | 2017-09-21 10:07 | P.PN_ITS ---
Subjective Date Patient Seen: 09/21/17 Time Patient Seen: 10:05 Interval history: No new complaints Exam Vital Signs (past 8 hours): Vital Signs - 8 hr 3 09/21/17 03:57 Temperature 98.8 F Pulse Rate 64 Respiratory Rate 18 Blood Pressure 163/89 H Pulse Oximetry 93 Pulse Oximetry 93 Oxygen Delivery Method Room Air Oxygen Flow Rate 0 Narrative Exam Narrative: He is resting quietly he ate a good breakfast has yet been up with physical therapy this morning The HEENT exam the laceration has been sutured on the right lateral orbit area and the ecchymoses present Lungs are clear Heart regular rhythm Neuro exam generalized weakness no focal deficits Objective Labs Result Diagrams: 09/20/17 08:20 09/20/17 08:20 Labs: Laboratory Results - last 24 hr 09/20/17 18:15 Stool Aeromonas Cult Neg for aeromonas Stl C. cayetanensis PCR Not detected Stool Rotavirus (PCR) Not detected Stool Adenovirus (PCR) Not detected Stool Astrovirus (PCR) Not detected Stool Cryptosporidium PCR Not detected Stl E.coli Shiga Tox PCR Not detected St Sh/Enteroin Ecoli PCR Not detected Stool E coli O157 PCR Not Reportable Stl Enterotoxigenic E PCR Not detected Stool EPEC (PCR) Not detected Stl E. histolytica PCR Not detected Stool Giardia Lamblia PCR Not detected Stl P. shigelloides PCR Not detected St Y.enterocolitica PCR Not detected Stool Vibrio (PCR) Not detected Stl Vibrio cholerae PCR Not detected Stl Enteroaggr Ecoli PCR Not detected Stl Norovirus GI/GII PCR Not detected Campylobacter (PCR) Not detected C. difficile Tox (PCR) Not detected Salmonella (PCR) Not detected Assessment & Plan Plan: Assessment/Plan Narrative: One. Ground level fall after tripping now unable to ambulate due to pain and weakness. His laceration was sewed up by the ER he has bruising around the right eye. There are concerns about his balance and walking ability and able to care for himself at home so will continue with observation with physical therapy and work on a safe discharge plan 2. History of chronic kidney disease his creatinine from September 20 was normal 3. History of falls patient may need a more supervised environment at home 4. Hypertension plan to continue valsartan 5. Code status patient desires to be full code Quality VTE Deep Vein Thrombosis/Pulmonary Embolism Present on Admission: No
--- NOTE | 2017-09-21 10:11 | PC.NURSE ---
Pt very suspicious and a bit uncooperative at beginning of shift but with staff reassurance and strong encouragement pt was complinat with using call light and thankful for any assistance from this RN. We ambulated to where he urinated and voided small amt of clear mucous rectally. medicated with po tylenol for c/o right sided pain upon inspiration and bathed. HE WISHED TO TAKE A NAP HE IS PRESENTLY AFTER HAVING A LONG TOUGH NIGHT
--- NOTE | 2017-09-21 11:32 | PT.IPTN ---
Physical Therapy Treatment Note M2 PT-IP Current Condition Start: 09/19/17 15:53 Freq: Status: Active Protocol: Document 09/20/17 14:20 RCC (Rec: 09/20/17 14:58 RCC [id number]) Physical Therapy Current Condition Current Condition Evaluation Date 09/19/17 Treatment Diagnosis GLF; difficulty in mobility Onset Date 09/19/17 Precautions Other Precautions Falls M3 PT-IP Subjective Start: 09/19/17 15:53 Freq: Status: Active Protocol: Document 09/21/17 11:15 RS (Rec: 09/21/17 11:32 RS [id number]) Subjective Physical Therapy Visit Type Type Treatment Note Visit Start Time 10:50 Visit Stop Time 11:15 Total Visit Minutes 25 Number of COST CONTROLLER Visits 0 Physical Therapy Visit Comments Patient Comments Pt reports not head pain, only having pain in R chest. Pt agreeable to participate in therapy, wanting to get up out of bed. Therapy Pain Assessment Pain When Pain Assessed At Rest Pain Present Pain Present Pain Reported Location Bilateral Shoulder Intensity 3 Scale Used Numeric (1 - 10) Description Aching Pressure Tender With Movement Pain Management Techniques Distraction Modification of Treatment Re-positioning M4 PT-IP Mobility and Gait Start: 09/19/17 15:53 Freq: Status: Active Protocol: Document 09/21/17 11:15 RS (Rec: 09/21/17 11:32 RS [id number]) PT-Bed Mobility Assessment Rolling Type of Rolling Log Rolling Level of Assist Maximal Assistance Supine to Sit Supine to Sit Moderate Assistance 1 Person Assistance Sit to Supine Sit to Supine Maximum Assistance 1 Person Assistance Scooting Scooting to Edge of Bed Maximum Assistance PT-Transfer Assessment Sit to and From Stand Sit to and from Stand Minimal Assistance 1 Person Assistance Use of Upper Extremities Equipment Transfer Assistive Device Gait Belt Front Wheeled Walker Transfers Transfer Destination Chair Transfer Technique Stand Step Pivot Transfer Ability Level of Assist Contact Guard Assistance 1 Person Assistance Comments Mobility Comments pt needing initial min/mod A to get weight forward over feet to stay balanced. Once cued on more upright posture pt was better able to maintain balance with only CGA. Gait Assessment Gait Gait Assistance Required: Minimum Assistance Distance (Feet) (feet) 30 Assistive Devices Assistive Device Gait Belt Front Wheeled Walker Gait Deviations General Gait Pattern Decreased Stride Length Decreased Feet Clearance Festinating Flexed Trunk Narrow Based Gait Factors Limiting Gait Function Factors Limiting Gait Function Decreased Activity Tolerance Decreased Strength Pain Poor Balance Poor Safety Awareness Comments Gait Comments Pt with mildly scissoring gait and inconsistent stepping pattern overall, definitely needing min A to maintain balance. PT-Balance Assessment Sitting Balance and Reactions Static Sitting Balance Ability Good Dynamic Sitting Balance Ability Fair Standing Balance and Reactions Static Standing Balance Ability Poor Dynamic Standing Balance Ability Poor Device Used FWW M5 PT-IP Objective Assessments Start: 09/19/17 15:53 Freq: Status: Active Protocol: Document 09/19/17 15:53 AB (Rec: 09/19/17 16:19 AB [id number]) Orientation Orientation/Cognition Level of Alertness Alert Orientation Name Place Situation Safety Awareness Decreased Safety Awareness Memory Description Short Term Impaired Fdc Impaired Strength Lower Extremity Strength Assessment Bilaterally Impaired Hip 4-/5 Knee 4-/5 Ankle 4-/5 M6 PT-IP Treatment Start: 09/19/17 15:53 Freq: Status: Active Protocol: Document 09/19/17 15:53 AB (Rec: 09/19/17 16:19 AB [id number]) Physical Therapy Treatment Education Education Provided Safety M7 PT-IP Assessment and Plan Start: 09/19/17 15:53 Freq: Status: Active Protocol: Document 09/21/17 11:15 RS (Rec: 09/21/17 11:32 RS [id number]) PT Summary Assessment and Plan Potential Rehabilitation Potential Fair Status of Condition at Evaluation Stable Summary Impairments Pain Strength Balance Cognition Bed Mobility Transfers Gait Activity Tolerance Progress Towards Goals Progressing Toward Goals Slow Progress due to Activity Tolerance Assessment Summary Pt feeling better after nap, but needing more assist with bed mobility and transfers today. Pt with low initiation of any task, needing nearly [id number] cues for all movements. It would not be safe for pt to transition to a setting without 24/7 assist at this time. Pt is a high fall risk. Highly recommend pt transition to SNF for low intensity rehab to optimize independent with functional mobility and reduce fall risk before considering discharging to a setting with less than 24/7 assist. Frequency of Treatment Frequency Of Treatment Twice a Day Treatment Plan Physical Therapy Treatment Plan Bed Mobility Training Transfer Training Gait Training Therapeutic Exercise Balance Retraining Post Op Education Discharge Planning Hot or Cold Pack Neuromuscular Re-ed Coordination Retraining Manual Therapy Other Recommendations and Next Treatment prog. bed mobility, transfers, Focus gait. Recommendations To Nursing Amount of Assist Needed 1 Person Assist Discharge Recommendations PT Discharge Recommendations SNF Rehab Other Discharge Recommendations would need 24/7 assist and services if to d/c home/[facility].
--- NOTE | 2017-09-21 12:04 | PM.DS.1 ---
History of Present Illness Chief complaint: GLF Narrative: Patient tripped over a curb and fell and struck his head cut his high. This was a witnessed fall. No loss of consciousness noted. He does live alone he was brought to the emergency room by friends patient was unable to ambulate after he was attended to by the ER. Discharge Providers Date of admission: 09/19/17 17:42 Primary care physician: Rene Diop MD Consults: 09/19/17 15:08 Consult to Physical Therapy Evaluate & Treat Comment: Physician Instructions: Evaluate and Treat 09/20/17 06:50 Consult to Physical Therapy Evaluate & Treat Comment: weak falls Physician Instructions: Evaluate and Treat Discharge provider: Ap Lenz MD Summary Discharge Diagnosis: One. Ground level fall with the laceration and repair 2. Hypertension Hospital Course: Patient brought in under observation status after he fell at home and had no place to go unable to take care of herself adequately at home had no one to watch after him so we brought him in under observation status and had him do physical therapy he will be transferred to assisted living today and will continue with his home medications as before for his hypertension. He will follow up primary care in 1-2 weeks Status at Discharge Functional status at discharge: uses cane/walker Overall status at discharge: patient is progressing back to baseline Time Spent with Patient Greater than 30 minutes Exam Vital Signs (past 8 hours): Pulse Oximetry 93 Oxygen Delivery Method Room Air Oxygen Flow Rate 0 Objective Labs Result Diagrams: 09/20/17 08:20 09/20/17 08:20 Labs: Laboratory Results - last 24 hr 09/20/17 18:15 Stool Aeromonas Cult Neg for aeromonas Stl C. cayetanensis PCR Not detected Stool Rotavirus (PCR) Not detected Stool Adenovirus (PCR) Not detected Stool Astrovirus (PCR) Not detected Stool Cryptosporidium PCR Not detected Stl E.coli Shiga Tox PCR Not detected St Sh/Enteroin Ecoli PCR Not detected Stool E coli O157 PCR Not Reportable Stl Enterotoxigenic E PCR Not detected Stool EPEC (PCR) Not detected Stl E. histolytica PCR Not detected Stool Giardia Lamblia PCR Not detected Stl P. shigelloides PCR Not detected St Y.enterocolitica PCR Not detected Stool Vibrio (PCR) Not detected Stl Vibrio cholerae PCR Not detected Stl Enteroaggr Ecoli PCR Not detected Stl Norovirus GI/GII PCR Not detected Campylobacter (PCR) Not detected C. difficile Tox (PCR) Not detected Salmonella (PCR) Not detected Discharge Plan Discharge Plan Patient Disposition: Home, Self-Care Other facility: [facility] Provider Discharge Instructions Diet: Diet as Tolerated Activity: as tolerated Wound Care Dressing: Remove sutures within 14 days Discharge Data Primary Care Provider: Rene Diop Attending Provider: Ap Lenz Admit Date/Time: 09/19/17 17:42 Quality VTE Deep Vein Thrombosis/Pulmonary Embolism Present on Admission: No
[2017-09-21 12:08] VITALS: PULSE 75; RESP 16; TEMP 36.8; O2SAT 96
--- NOTE | 2017-09-21 15:33 | PC.NURSE ---
report called to [facility] AND TRANSPORTED TO CAR BY [facility] STAFF
--- NOTE | 2017-09-21 15:59 | CM.DPC ---
DCP/continued: Received notification from /Dr. Lenz that patient medically cleared for discharge today. Reviewed notes indicating that current plan is [facility]. Placed call to [facility] and spoke Brayden. All updated notes faxed to [facility] indicating patient currently total care. Brayden reviewed with nrsg staff at [facility] and they are comfortable accepting. Patient aware and agreeable to plan. Placed call to [facility]/[place] in [place]. she too is agreeable and very satisfied with plan. [facility] unable to provide transport. Dr. Lenz signed medication sheet and completed d/c summary. Pt's. caregiver/Dawna in room and agreeable to take patient in private vehicle to [facility]. [facility] staff will assist with getting patient in car and [facility] staff in agreement to get patient out when he arrives. Patient currently on service with [facility] for therapy. Placed call to Maria C at [facility] and those services will be resumed at [facility]. P: [facility] today via private auto. ENEDINA Rosales
== END 2017-09-21 15:35 | disposition home or self-care (01) ==
LOC: ED 17:40 → ICU 17:44
PROVIDERS: Admitting Provider Internal Medicine; Emergency Provider Emergency Medicine; Family Provider Internal Medicine; PCP Internal Medicine; Visit Provider Internal Medicine
DX: S01.111A Laceration without foreign body of right eyelid and periocular area, initial encounter (principal); W17.89XA Other fall from one level to another, initial encounter; Z91.81 History of falling; G47.33 Obstructive sleep apnea (adult) (pediatric); I12.9 Hypertensive chronic kidney disease with stage 1 through stage 4 chronic kidney disease, or unspecified chronic kidney disease; N18.2 Chronic kidney disease, stage 2 (mild); M19.91 Primary osteoarthritis, unspecified site; L89.303 Pressure ulcer of unspecified buttock, stage 3; R33.9 Retention of urine, unspecified; R53.1 Weakness
CPT/HCPCS: 12001; 12011; 36415; 70450; 71045; 73030; 73502; 80053; 81001; 85027; 87086; 87507; 87797; 97116; 97161; 97530; 99284; 99285; G0378

== ENCOUNTER → 2017-11-02 10:00 | Outpatient (REF) | payer MEDICARE, OTHER, SELFPAY ==
[2017-11-02 10:03] LABS: RBC Urine None Seen (0-5/HPF)
[2017-11-02 10:06] LABS: Appearance Urine UA SL CLOUDY; Bilirubin Urine UA NEGATIVE (NEGATIVE); Color Urine UA YELLOW; Glucose Urine UA NEGATIVE (Normal); Ketones Urine UA NEGATIVE (NEGATIVE); Leukocyte Esterase Urine UA 1+ (NEGATIVE); Nitrite Urine UA Negative (Negative); Occult Blood Urine UA NEGATIVE (Negative); Protein Urine UA 1+ (Negative); Specific Gravity Urine UA 1.015 (1.000-1.035); Urobilinogen Urine UA 0.2 E.U./dL (0.2)
[2017-11-02 11:07] LABS: Bacteria Urine Few (2-10); Culture Indicated Urine Specimen Cultured; Squamous Epithelial Cell Urine 0-1 /HPF; WBC Urine >100/HPF (0-5/HPF)
== END ==
LOC: LAB 10:00
PROVIDERS: Family Provider Internal Medicine; PCP Internal Medicine; Visit Provider Internal Medicine
DX: R33.9 Retention of urine, unspecified (principal)
CPT/HCPCS: 81001; 87077; 87086